=== PATIENT | male | born 1965 | race Caucasian/White ===

== ENCOUNTER → 2018-05-11 | Outpatient (CLI) | payer MEDICARE ==
--- NOTE | 2018-05-11 14:35 | RADIOLOGY REPORT (SQ) ---
EXAM DESCRIPTION: CHEST 2 VIEWS COMPLETED DATE/TIME: 05/11/2018 2:27 pm REASON FOR STUDY: F17.200 NICOTINE DEPENDENCE, UNSPECIFIED, UNCOMPLICATED J20.9 ACUTE BRONCHI F17.20 0 NICOTINE DEPENDENCE, UNSPECIFIED, UNCOMPLICATED J20.9 ACUTE BRONCHITIS, UNSPECIFIED COMPARISON: 09/10/2014 NUMBER OF VIEWS: Two view. TECHNIQUE: Frontal and lateral radiographic views of the chest acquired. LIMITATIONS: None. FINDINGS: LUNGS AND PLEURA: No opacities, masses or pneumothorax. No pleural effusion. Attenuated bl ood vessels and flattened didier-diaphragms. MEDIASTINUM AND HILAR STRUCTURES: No masses. No contour abnormalities. HEART AND VASCULAR STRUCTURES: Heart normal in size and contour. No evidence for failure. BONES: No acute findings. HARDWARE: None in the chest. OTHER: No other significant finding. IMPRESSION: COPD. NO ACUTE RADIOGRAPHIC FINDING IN THE CHEST. TECHNICAL DOCUMENTATION: JOB ID: [id number] [employer]- All Rights Reserved Reading location - IP/workstation name: [email or web address]
== END ==
LOC: RAD 14:09
PROVIDERS: ATTEND Nurse Practitioner Family
DX: J20.9 Acute bronchitis, unspecified (principal); F17.200 Nicotine dependence, unspecified, uncomplicated; J44.9 Chronic obstructive pulmonary disease, unspecified
CPT/HCPCS: 71046

== ENCOUNTER 2019-02-18 14:28 | Emergency (ER) | payer MEDICARE ==
[2019-02-18] MEDS ORDERED: CEFTRIAXONE 1 GM/D5W RTU 1 GM/50 ML RTUPB IV ONE (14:52)
[2019-02-18] MEDS ORDERED: ONDANSETRON HCL INJ/PF 4 MG/2 ML SDV IV ONE (14:56)
[2019-02-18] MEDS ORDERED: MORPHINE SULFATE 10 MG/ML INJ IV ONE ×2 (14:56→16:39)
--- NOTE | 2019-02-18 14:56 | ER Document Report ---
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 - Vital Signs Vital signs: Temp Pulse Resp BP Pulse Ox 97.6 F 65 16 140/72 H 100 02/18/19 14:34 02/18/19 14:34 02/18/19 14:34 02/18/19 14:34 02/18/19 14:34 Original Note: ED Medical Screen (RME) - General Chief Complaint: Hand Injury Stated Complaint: HAND INJURY Time Seen by Provider: 02/18/19 14:40 TRAVEL OUTSIDE OF THE [place] IN LAST 30 DAYS: No - HPI Notes: 02/18/19 14:53 Patient is a 53-year-old male who presents with left hand pain and bleeding status post crush injury by a hammer prior to arrival. Patient states that he had x-rays at another clinic and said that his bone was very displaced and that he needed to come here because he needed surgery. Denies HURTADO, fever, neck pain, URI, CP, SOB, Abd pain, dysuria, back pain, or rash. I have treated and performed a rapid initial assessment of this patient. A comprehensive ED assessment and evaluation of the patient, analysis of test results and completion of medical decision making process will be conducted by additional ED providers. I did notify Dr. Mckinnon who recommends Rocephin IV for now. I did review the images at bedside and he does have a displaced fracture of the fifth metacarpal as well as a puncture coming through the skin which I suspect to be secondary to possibly a bone puncturing the skin making it an open fracture. PHYSICAL EXAMINATION: GENERAL: Well-appearing, well-nourished and in no acute distress. A&Ox4. Answers questions appropriately. LUNGS: Breath sounds clear to auscultation bilaterally and equal. No wheezes rales or rhonchi. HEART: Regular rate and rhythm without murmurs, rubs, gallops. - Related Data Allergies/Adverse Reactions: BEES Allergy (Uncoded 02/18/19 14:39) Past Medical History - Past Medical History Cardiac Medical History: Denies: Hx Coronary Artery Disease, Hx Heart Attack, Hx Hypertension Pulmonary Medical History: Reports: Hx COPD Denies: Hx Asthma, Hx Bronchitis, Hx Pneumonia Neurological Medical History: Denies: Hx Cerebrovascular Accident, Hx Seizures Musculoskeltal Medical History: Reports Hx Arthritis - Back, neck, Rt foot - Immunizations Hx Diphtheria, Pertussis, Tetanus Vaccination: No - Unsure Physical Exam - Vital signs Vitals: Temp Pulse Resp BP Pulse Ox 97.6 F 65 16 140/72 H 100 02/18/19 14:34 02/18/19 14:34 02/18/19 14:34 02/18/19 14:34 02/18/19 14:34 Course - Vital Signs Vital signs: Temp Pulse Resp BP Pulse Ox 97.6 F 65 16 140/72 H 100 02/18/19 14:34 02/18/19 14:34 02/18/19 14:34 02/18/19 14:34 02/18/19 14:34
--- NOTE | 2019-02-18 15:08 | RADIOLOGY REPORT (SQ) ---
EXAM DESCRIPTION: HAND LEFT 3 VIEWS COMPLETED DATE/TIME: 02/18/2019 2:55 pm REASON FOR STUDY: crush injury left hand COMPARISON: None. EXAM PARAMETERS: NUMBER OF VIEWS: Three views. TECHNIQUE: AP, lateral and oblique radiographic images acquired of the left hand. LIMITATIONS: None. FINDINGS: MINERALIZATION: Normal. BONES: Comminuted proximal 5th metacarpal metaphyseal fracture with 6 mm of lateral and impaction. N o other fracture identified. . JOINTS: No effusion. SOFT TISSUES: Moderate soft tissue swelling. No radiopaque foreign body. OTHER: No other significant finding. IMPRESSION: Comminuted proximal 5th metacarpal metaphyseal fracture with 6 mm of lateral and impacti on. No other fracture identified. TECHNICAL DOCUMENTATION: JOB ID: [id number] [place]-72 2010 [employer]- All Rights Reserved Reading location - IP/workstation name: [email or web address]
[2019-02-18] MEDS ORDERED: CEFTRIAXONE INJ 1000 MG VIAL ONE (15:24)
[2019-02-18] MEDS ORDERED: CEFTRIAXONE INJ 1000 MG VIAL IV ONE (15:29)
[2019-02-18 15:50] LABS: ABSOLUTE LYMPHOCYTES (AUTO) 1.2 10^3/uL (0.5-4.7); ABSOLUTE MONOCYTES (AUTO) 0.7 10^3/uL (0.1-1.4); BASOPHILS % (AUTO) 0.2 % (0-2); EOSINOPHILS % (AUTO) 0.6 % (0-6); HEMATOCRIT 42.8 % (37.9-51.0); HEMOGLOBIN 14.3 g/dL (13.5-17.0); LYMPHOCYTES % (AUTO) 15.6 % (13-45); MEAN CORPUSCULAR HEMOGLOBIN 31.3 pg (27.0-33.4); MEAN CORPUSCULAR HGB CONC 33.4 g/dL (32.0-36.0); MEAN CORPUSCULAR VOLUME 94 fl (80-97); MONOCYTES % (AUTO) 8.4 % (3-13); PLATELET COUNT 195 10^3/uL (150-450); RED BLOOD COUNT 4.55 10^6/uL (4.35-5.55); RED CELL DISTRIBUTION WIDTH 13.2 % (11.5-14.0); SEGMENTED NEUTROPHILS % (AUTO) 75.2 % (42-78); TOTAL CELLS COUNTED % (AUTO) 100 %; WHITE BLOOD COUNT 7.9 10^3/uL (4.0-10.5)
[2019-02-18 15:56] LABS: INTERNATIONAL RATION (INR) 0.96; PROTHROMBIN TIME 13.3 SEC (11.4-15.4)
[2019-02-18 15:57] LABS: PARTIAL THROMBOPLASTIN TIME 27.6 SEC (23.5-35.8)
--- NOTE | 2019-02-18 15:58 | ER Document Report ---
ED General - General Chief Complaint: Hand Injury Stated Complaint: HAND INJURY Time Seen by Provider: 02/18/19 14:40 Primary Care Provider: DEVENDRA CORADO MD [ASSOCIATE] - Follow up in 3-5 days Notes: Patient is a 53-year-old male that presents to the emergency department for chief complaint of left hand injury. Patient states that he was trying to hammer off a bracket, and he was holding onto the bracket with a pair pliers in his left hand, and he actually struck his left hand with a claw hammer, resulting in injury to his hand. He states that this occurred around noon today, he initially went to urgent care, but was advised to come to the emergency department after they saw his hand, they did give him a tetanus shot prior to sending him over. Currently rates his pain as a 6 out of 10 describes as an aching and throbbing sensation in his left hand more towards the small finger. He states he has some tingling in the finger, but states he is able to feel it, denies any weakness. He denies any other injuries associated with this. Past Medical History: Chronic low back pain Past Surgical History: Carpal tunnel surgery, back surgery Social History: Admits to smoking cigarettes, denies current alcohol or drug use. Family History: Reviewed and noncontributory for presenting illness Allergies: Reviewed, see documented allergy list. REVIEW OF SYSTEMS: Other than noted above, the 12 point review of systems was reviewed with the patient and were negative, all pertinent findings are included in the HPI. PHYSICAL EXAMINATION: Vital signs reviewed, nursing noted reviewed. GENERAL: Well-appearing, well-nourished and in no acute distress. HEAD: Atraumatic, normocephalic. EYES: Eyes appear normal, extraocular movements intact, sclera anicteric, conjunctiva are normal. ENT: nares patent, oropharynx clear without exudates. Moist mucous membranes. NECK: Normal range of motion, supple without lymphadenopathy LUNGS: Breath sounds clear to auscultation bilaterally and equal. No wheezes rales or rhonchi. HEART: Regular rate and rhythm without murmurs EXTREMITIES: The left hand is noted to have ecchymosis and edema noted to the dorsal aspect, there is a small superficial skin abrasion associated with this as well, there is tenderness with palpation, range of motion at the MCP of the fifth digit is decreased secondary to pain, the patient does have intact tendon function however at the DIP and PIP, with good cap refill less than 3 seconds, and patient sensation is intact distally as well in all digits. The rest the patient's extremity exam is grossly unremarkable has good range of motion, and is neurovascularly intact distally in all lower extremities. NEUROLOGICAL: No focal neurological deficits. Moves all extremities spontaneously Motor and sensory grossly intact on exam. PSYCH: Normal mood, normal affect. SKIN: Warm, Dry, normal turgor, no rashes or lesions noted on exposed skin TRAVEL OUTSIDE OF THE [place] IN LAST 30 DAYS: No - Related Data Allergies/Adverse Reactions: BEES Allergy (Uncoded 02/18/19 14:39) Past Medical History - Social History Smoking Status: Current Every Day Smoker Family History: None Patient has suicidal ideation: No Patient has homicidal ideation: No - Past Medical History Cardiac Medical History: Denies: Hx Coronary Artery Disease, Hx Heart Attack, Hx Hypertension Pulmonary Medical History: Reports: Hx COPD Denies: Hx Asthma, Hx Bronchitis, Hx Pneumonia Neurological Medical History: Denies: Hx Cerebrovascular Accident, Hx Seizures Renal/ Medical History: Denies: Hx Peritoneal Dialysis Musculoskeletal Medical History: Reports Hx Arthritis - Back, neck, Rt foot - Immunizations Hx Diphtheria, Pertussis, Tetanus Vaccination: No - Unsure Physical Exam - Vital signs Vitals: Temp Pulse Resp BP Pulse Ox 97.6 F 65 16 140/72 H 100 02/18/19 14:34 02/18/19 14:34 02/18/19 14:34 02/18/19 14:34 02/18/19 14:34 Course - Re-evaluation Re-evalutation: Patient seen and examined vital signs reviewed. Laboratory data and/or imaging were ordered as appropriate for the patient's presenting symptoms and complaint, with consideration of any critical or life threatening conditions that may be associated with their obtained history and exam as noted above. Patient was treated with IV morphine, he was given a dose of IV Rocephin as well Results were reviewed when available and demonstrated comminuted fracture of the fifth metacarpal, with impaction, blood work was ordered in triage, and review was unremarkable, after close inspection of the patient's wound, it appeared ve ry superficial, and I do not believe that this is an open fracture based on close examination. The patient was re-evaluated and was stable, placed in an ulnar gutter splint as noted below, patient tolerated well, patient has pain medication at home, was advised to follow-up with orthopedic surgery and given referral. Evaluation was most consistent with right fifth metacarpal fracture, related to trauma Results were discussed with the patient at this point, after careful consideration I feel that that patient can be discharged from the emergency department, the patient was educated treatments and reasons to return to the emergency department based on their presumed diagnosis as noted above, they were advised to followup with a primary care physician in 2-3 days. Patient was agreeable to plan of care. *Note is created using voice recognition software and may contain spelling, syntax or grammatical errors. Laboratory 02/18/19 02/18/19 02/18/19 15:04 15:04 15:04 WBC 7.9 RBC 4.55 Hgb 14.3 Hct 42.8 MCV 94 MCH 31.3 MCHC 33.4 RDW 13.2 Plt Count 195 Seg Neutrophils % 75.2 Lymphocytes % 15.6 Monocytes % 8.4 Eosinophils % 0.6 Basophils % 0.2 Absolute Neutrophils 6.0 Absolute Lymphocytes 1.2 Absolute Monocytes 0.7 Absolute Eosinophils 0.0 Absolute Basophils 0.0 PT 13.3 INR 0.96 APTT 27.6 Sodium 137.3 Potassium 4.2 Chloride 95 L Carbon Dioxide 32 H Anion Gap 10 BUN 14 Creatinine 0.55 Est GFR ( Amer) > 60 Est GFR (Non-Af Amer) > 60 Glucose 102 Calcium 9.1 Total Bilirubin 0.6 Direct Bilirubin 0.2 Neonat Total Bilirubin Not Reportable Neonat Direct Bilirubin Not Reportable Neonat Indirect Bili Not Reportable AST 26 ALT 22 Alkaline Phosphatase 78 Total Protein 7.2 Albumin 4.8 Hand X-Ray 02/18/19 14:41 IMPRESSION: Comminuted proximal 5th metacarpal metaphyseal fracture with 6 mm of lateral and impaction. No other fracture identified. - Vital Signs Vital signs: Temp Pulse Resp BP Pulse Ox 97.8 F 62 16 138/70 H 100 02/18/19 17:40 02/18/19 17:40 02/18/19 17:40 02/18/19 17:40 02/18/19 17:40 - Laboratory Result Diagrams: 02/18/19 15:04 02/18/19 15:04 Laboratory results interpreted by me: 02/18/19 15:04 Chloride 95 L Carbon Dioxide 32 H Procedures - Immobilization Left Hand Pre-Proc Neuro Vasc Exam: Normal Immobilizer type: Ulnar Performed by: PCT Post-Proc Neuro Vasc Exam: Normal Alignment checked and good: Yes Discharge - Discharge Clinical Impression: Fracture of metacarpal of left hand, closed Qualifiers: Encounter type: initial encounter Metacarpal bone: fifth Metacarpal location: unspecified portion of metacarpal Fracture alignment: displaced Qualified C ode(s): S62.307A - Unspecified fracture of fifth metacarpal bone, left hand, initial encounter for closed fracture Condition: Stable Disposition: HOME, SELF-CARE Instructions: Fractured Fifth Metacarpal ([facility]) Additional Instructions: Please call orthopedic surgeon, to have your fractured hand looked at, keep the splint clean and dry, do not get it wet. Keep it in place and to you are seen by the orthopedic surgeon. Take the pain medication only as needed, and please complete the entire course of antibiotics prescribed. Prescriptions: Amox Tr/Potassium Clavulanate [Augmentin 875-125 Tablet] 1 tab PO BID 7 Days #14 tablet Hydrocodone/Acetaminophen [Mather 5-325 mg Tablet] 1 tab PO Q8H PRN #12 tablet PRN Reason: hand pain Referrals: DEVENDRA CORADO MD [ASSOCIATE] - Follow up in 3-5 days
[2019-02-18 15:59] LABS: ALANINE AMINOTRANSFERASE 22 U/L (21-72); ALBUMIN 4.8 g/dL (3.5-5.0); ALKALINE PHOSPHATASE 78 U/L (38-126); ANION GAP 10 (5-19); ASPARTATE AMINO TRANSFERASE 26 U/L (17-59); BILIRUBIN,DIRECT 0.2 mg/dL (0.0-0.4); BILIRUBIN,TOTAL 0.6 mg/dL (0.2-1.3); BLOOD UREA NITROGEN 14 mg/dL (7-20); CALCIUM 9.1 mg/dL (8.4-10.2); CARBON DIOXIDE 32 mmol/L (22-30); CHLORIDE 95 mmol/L (98-107); GLUCOSE 102 mg/dL (75-110); POTASSIUM 4.2 mmol/L (3.6-5.0); SODIUM 137.3 mmol/L (137-145); TOTAL PROTEIN 7.2 g/dL (6.3-8.2)
[2019-02-18 17:47] VITALS: BP 138/70
== END 2019-02-18 17:40 | disposition home or self-care (01) ==
LOC: ER 14:28
DX: S62.307A Unspecified fracture of fifth metacarpal bone, left hand, initial encounter for closed fracture (principal); W22.8XXA Striking against or struck by other objects, initial encounter; G89.29 Other chronic pain; M54.5 Low back pain; F17.210 Nicotine dependence, cigarettes, uncomplicated
CPT/HCPCS: 96376; 99283; 96375; 96365; 36415; 85025; 85610; 85730; 80053; 73130; 29125; J2270; J0696; J2405

== ENCOUNTER 2019-02-20 12:44 | Emergency (ER) | payer MEDICARE ==
[2019-02-20 12:59] VITALS: BP 136/62
--- NOTE | 2019-02-20 13:15 | ER Document Report ---
HPI - HPI Time Seen by Provider: 02/20/19 13:07 Pain Level: 5 Notes: Patient is a 53-year-old male who presents complaining of continued pain to his left hand status post fracture that was found to days ago. Patient has a fracture to his mid metacarpal with displacement and impaction. Patient did try to call an orthopedic group, but they were closely presented here as his pain management doctor told him that we have an orthopedic on-call. He has no other concerns or complaints. That is his primary reason for coming today. He is under the care of pain management for chronic pain and is on a fentanyl patch. Denies any headache, fever, URI, sore throat, chest pain, palpitations, syncope, cough, shortness of breath, wheeze, dyspnea, abdominal pain, nausea/vomiting/diarrhea, urinary retention, dysuria, hematuria, loss of control of bowel or bladder, numbness/tingling, muscle paralysis, or rash. - ROS Systems Reviewed and Negative: Yes All other systems reviewed and negative Past Medical History - Social History Smoking Status: Unknown if Ever Smoked Family History: None - Past Medical History Cardiac Medical History: Denies: Hx Coronary Artery Disease, Hx Heart Attack, Hx Hypertension Pulmonary Medical History: Reports: Hx COPD Denies: Hx Asthma, Hx Bronchitis, Hx Pneumonia Neurological Medical History: Denies: Hx Cerebrovascular Accident, Hx Seizures Renal/ Medical History: Denies: Hx Peritoneal Dialysis Musculoskeletal Medical History: Reports Hx Arthritis - Back, neck, Rt foot - Immunizations Hx Diphtheria, Pertussis, Tetanus Vaccination: No - Unsure Vertical Provider Document - CONSTITUTIONAL Agree With Documented VS: Yes Notes: PHYSICAL EXAMINATION: GENERAL: Well-appearing, well-nourished and in no acute distress. HEAD: Atraumatic, normocephalic. NECK: Normal range of motion, supple without lymphadenopathy. No midline ten derness. LUNGS: Breath sounds clear to auscultation bilaterally and equal. No wheezes rales or rhonchi. HEART: Regular rate and rhythm without murmurs, rubs, gallops. Musculoskeletal: Rt hand/wrist: + swelling noted to the hand near the 5th metacarpal with associated tenderness. N/V intact distal. FROM to passive/active at the wrist and DIP/PIP otherwise. Strength 5+/5. No scaphoid tenderness. - INFECTION CONTROL TRAVEL OUTSIDE OF THE [place] IN LAST 30 DAYS: No Course - Re-evaluation Re-evalutation: 02/20/19 13:19 I did call and speak with Dr. Chand who recommends calling his office today as they are open and he can schedule an appointment. No other recommendations at this time. Vitals are otherwise acceptable without significant tachycardia, tachypnea, or hypoxia. PE is otherwise unremarkable for any neurovascular compromise or septic joint. Patient is nontoxic-appearing and is tolerating p.o. without difficulty. Toradol given IM today. Patient is already on a fentanyl patch regularly through pain management. Information given for the orthopedic group that he may call when he is discharged here to schedule an appointment. Recheck with your PCM in 3 to 5 days otherwise. Return to the ED with any other worsening/concerning symptoms. Patient is in agreement. - Vital Signs Vital signs: Temp Pulse Resp BP Pulse Ox 98.6 F 78 18 136/62 H 97 02/20/19 12:59 02/20/19 12:59 02/20/19 12:59 02/20/19 12:59 02/20/19 12:59 Discharge - Discharge Clinical Impression: Fracture of metacarpal of left hand, closed Qualifiers: Encounter type: sequela Metacarpal bone: fifth Metacarpal location: base Fracture alignment: displaced Qualified Code(s): S62.317S - Displaced fracture of base of fifth metacarpal bone, left hand, sequela Condition: Stable Disposition: HOME, SELF-CARE Additional Instructions: Rest, Ice, Compression, Elevation Use splint as directed Tylenol/ibuprofen as needed F/u with your PCP in 3-5 days for a recheck Call orthopedics today to schedule an appointment for further evaluation and management- office is open Return to the ED with any worsening symptoms and/or development of fever, headache, chest pain, palpitations, syncope, shortness of breath, trouble breathing, abdominal pain, n/v/d, muscle weakness/paralysis, numbness/tingling, swelling, redness, or other worsening symptoms that are concerning to you. Forms: Elevated Blood Pressure Referrals: JESSE CHAND DO [ACTIVE STAFF] - Follow up in 3-5 days
[2019-02-20] MEDS ORDERED: KETOROLAC TROMETHAMINE INJ/PF 30 MG/1 ML SDV IM ONE (13:16)
== END 2019-02-20 13:42 | disposition home or self-care (01) ==
LOC: ER 12:44
DX: S62.317S Displaced fracture of base of fifth metacarpal bone, left hand, sequela (principal); M79.642 Pain in left hand; G89.29 Other chronic pain; X58.XXXS Exposure to other specified factors, sequela; Z79.899 Other long term (current) drug therapy
CPT/HCPCS: 99283

== ENCOUNTER 2019-03-01 08:14 | Day surgery (SDC) | payer MEDICARE ==
[~2019-03-01 08:14] MED LIST: CEFAZOLIN 2 GM/D5W RTU 2 GM/50 ML RTUPB IV PRN
[2019-03-01] MEDS ORDERED: MIDAZOLAM 2 MG/2 ML INJ ONE (09:06)
[2019-03-01] MEDS ORDERED: FENTANYL CITRATE INJ/PF 100 MCG/2 ML AMPUL ONE ×2 (09:06→11:37)
[2019-03-01] MEDS ORDERED: PROPOFOL INJ 200 MG/20 ML VIAL IV ONE (09:06)
[2019-03-01 09:15] LABS: HEMATOCRIT 42.4 % (37.9-51.0); HEMOGLOBIN 14.1 g/dL (13.5-17.0); MEAN CORPUSCULAR HEMOGLOBIN 31.1 pg (27.0-33.4); MEAN CORPUSCULAR HGB CONC 33.1 g/dL (32.0-36.0); MEAN CORPUSCULAR VOLUME 94 fl (80-97); PLATELET COUNT 192 10^3/uL (150-450); RED BLOOD COUNT 4.51 10^6/uL (4.35-5.55); RED CELL DISTRIBUTION WIDTH 13.1 % (11.5-14.0); WHITE BLOOD COUNT 5.2 10^3/uL (4.0-10.5)
[2019-03-01] MEDS ORDERED: ONDANSETRON HCL INJ/PF 4 MG/2 ML SDV ONE (09:17)
--- NOTE | 2019-03-01 09:23 | RADIOLOGY REPORT (SQ) ---
EXAM DESCRIPTION: CHEST SINGLE VIEW COMPLETED DATE/TIME: 03/01/2019 8:50 am REASON FOR STUDY: PREOP S62.317A DISP FX OF BASE OF FIFTH METACARPAL BONE, LEFT HAND COMPARISON: None. NUMBER OF VIEWS: One view. TECHNIQUE: Single frontal radiographic view of the chest acquired. LIMITATIONS: None. FINDINGS: LUNGS AND PLEURA: No opacities, masses or pneumothorax. No pleural effusion. Attenuated bl ood vessels and flattened didier-diaphragms. MEDIASTINUM AND HILAR STRUCTURES: No masses. Contour normal. HEART AND VASCULAR STRUCTURES: Heart normal in size. Normal vasculature. BONES: No acute findings. HARDWARE: None in the chest. OTHER: No other significant finding. IMPRESSION: COPD. NO ACUTE RADIOGRAPHIC FINDING IN THE CHEST. TECHNICAL DOCUMENTATION: JOB ID: [id number] [employer]- All Rights Reserved Reading location - IP/workstation name: [email or web address]
[2019-03-01 09:35] LABS: ANION GAP 6 (5-19); BLOOD UREA NITROGEN 14 mg/dL (7-20); CALCIUM 9.4 mg/dL (8.4-10.2); CARBON DIOXIDE 31 mmol/L (22-30); CHLORIDE 102 mmol/L (98-107); GLUCOSE 83 mg/dL (75-110); POTASSIUM 4.5 mmol/L (3.6-5.0); SODIUM 139.3 mmol/L (137-145)
[2019-03-01] MEDS ORDERED: CEFAZOLIN 2 GM/D5W RTU 2 GM/50 ML RTUPB IV ONE (10:00)
[2019-03-01] MEDS ORDERED: BUPIVACAINE HCL 0.5 % INJ/PF 30 ML SDV ONE (10:10)
[2019-03-01] MEDS ORDERED: FENTANYL CITRATE INJ/PF 100 MCG/2 ML AMPUL IV PRN ×2 (10:29)
[2019-03-01] MEDS ORDERED: PROMETHAZINE HCL INJ 25 MG/1 ML VIAL IV PRN (10:29)
[2019-03-01] MEDS ORDERED: MORPHINE SULFATE 10 MG/ML INJ IV PRN (10:29)
[2019-03-01] MEDS ORDERED: MEPERIDINE HCL/PF INJ 25 MG/1 ML DISP.SYRIN IV PRN (10:29)
[2019-03-01] MEDS ORDERED: OXYCODONE-ACETAMINOPHEN 5-325 MG TABLET PO PRN ×2 (10:29)
[2019-03-01] MEDS ORDERED: DIPHENHYDRAMINE HCL 50 MG/ML VIAL IV PRN (10:29)
--- NOTE | 2019-03-01 11:07 | Discharge Summary ---
Discharge Summary (SDC) - Discharge Final Diagnosis: Left fifth metacarpal fracture Date of Surgery: 03/01/19 Discharge Date: 03/01/19 Condition: Good Treatment or Instructions: Elevate left upper extremity Prescriptions: Oxycodone HCl/Acetaminophen [Percocet 5-325 mg Tablet] 5 - 325 mg PO Q6 PRN #40 tablet PRN Reason: Referrals: MAYO MARTIN DO [Primary Care Provider] - Discharge Diet: As Tolerated, Regular Respiratory Treatments at Home: Deep Breathing/Coughing Discharge Activity: Balance Activity w/Rest, No tub bath Home Care Assistance: None Needed Report the Following to Your Physician Immediately: Shortness of Breath, Fever over 101 Degrees, Drainage-Foul Smelling
--- NOTE | 2019-03-01 11:09 | Operative Report ---
Operative Report DATE OF SURGERY: 03/01/19 PREOPERATIVE DIAGNOSIS: Left comminuted proximal fifth carpal fracture OPERATION: Open reduction internal fixation left fifth metacarpal fracture SURGEON: VIELKA BAPTISTE ANESTHESIA: LMAC ESTIMATED BLOOD LOSS: 25 PROCEDURE: With the patient supine on the operating table the left hand is pre-scrubbed and then prepped and draped in sterile fashion. Limb is elevated for exsanguination tourniquet inflated 250 torr. A longitudinal incision was made over the junction of the proximal fifth metacarpal and carpal joint of the left upper extremity. Sharp dissection was carried incision down to the fracture. The fracture callus is debrided. The joint is reduced anatomically under fluoroscopic guidance. Is held with a single 0.045 pin. Subsequently a Gian T plate from the hand tray is applied to the dorsal lateral aspect of the metacarpal and secured with 4 screws distally and 3 screws proximally. The fracture reduction hardware placement checked fluoroscopically and felt to be adequate. The tourniquet is deflated. Hemostasis obtained with bipolar cautery. The wound was irrigated with bulb lavage. Is closed in layers interrupted Vicryl followed by nylon. A sterile compressive dressing and a plaster ulnar gutter splint were applied. The patient's return to the PACU in satisfactory condition.
[2019-03-01] MEDS: FENTANYL CITRATE INJ/PF 100 MCG/2 ML AMPUL IV PRN ×2 (11:40→11:54)
[2019-03-01] MEDS ORDERED: KETOROLAC TROMETHAMINE 60 MG/2 ML SDV ONE (11:40)
[2019-03-01] MEDS ORDERED: OXYCODONE-ACETAMINOPHEN 5-325 MG TABLET ONE (12:55)
--- NOTE | 2019-03-01 13:51 | RADIOLOGY REPORT (SQ) ---
EXAM DESCRIPTION: NO CHG FLUORO; HAND LEFT 2 VIEWS COMPLETED DATE/TIME: 03/01/2019 1:09 pm REASON FOR STUDY: ORIF LEFT 5TH METACARPAL ASST WITH FLUORO IN OR S62.317A DISP FX OF BASE OF FIFTH METACARPAL BONE, LEFT HAND COMPARISON: None. FLUOROSCOPY TIME: 11 seconds 2 images saved to PACS. TECHNIQUE: Intra-operative images acquired during surgical procedure to evaluate progress. NUMBER OF IMAGES: 2 LIMITATIONS: None. FINDINGS: Selected images from plate and screw fixation of 5th metacarpal fracture. IMPRESSION: IMAGE(S) OBTAINED DURING PROCEDURE. COMMENT: Quality ID [id number]: Final reports for procedures using fluoroscopy that document radiation exp osure indices, or exposure time and number of fluorographic images (if radiation exposure indices are not available) Please consult full operative report of the attending physician for description of the procedure. TECHNICAL DOCUMENTATION: JOB ID: [id number] [employer]- All Rights Reserved Reading location - IP/workstation name: [email or web address]
--- NOTE | 2019-03-01 13:51 | RADIOLOGY REPORT (SQ) ---
EXAM DESCRIPTION: NO CHG FLUORO; HAND LEFT 2 VIEWS COMPLETED DATE/TIME: 03/01/2019 1:09 pm REASON FOR STUDY: ORIF LEFT 5TH METACARPAL ASST WITH FLUORO IN OR S62.317A DISP FX OF BASE OF FIFTH METACARPAL BONE, LEFT HAND COMPARISON: None. FLUOROSCOPY TIME: 11 seconds 2 images saved to PACS. TECHNIQUE: Intra-operative images acquired during surgical procedure to evaluate progress. NUMBER OF IMAGES: 2 LIMITATIONS: None. FINDINGS: Selected images from plate and screw fixation of 5th metacarpal fracture. IMPRESSION: IMAGE(S) OBTAINED DURING PROCEDURE. COMMENT: Quality ID 145: Final reports for procedures using fluoroscopy that document radiation exp osure indices, or exposure time and number of fluorographic images (if radiation exposure indices are not available) Please consult full operative report of the attending physician for description of the procedure. TECHNICAL DOCUMENTATION: JOB ID: [id number] [employer]- All Rights Reserved Reading location - IP/workstation name: [email or web address]
[2019-03-01 14:06] VITALS: BP 115/71
--- NOTE | 2019-03-01 20:44 | EKG REPORT ---
SEVERITY:- NORMAL ECG - SINUS RHYTHM : Confirmed by: June Parker MD 01-Mar-2019 20:43:23
== END 2019-03-01 13:45 | disposition home or self-care (01) ==
LOC: OROUT 08:14
PROVIDERS: ATTEND Orthopaedic Surgery
DX: S62.317A Displaced fracture of base of fifth metacarpal bone, left hand, initial encounter for closed fracture (principal); X58.XXXA Exposure to other specified factors, initial encounter; Z87.891 Personal history of nicotine dependence; J44.9 Chronic obstructive pulmonary disease, unspecified; Z01.818 Encounter for other preprocedural examination
CPT/HCPCS: 36415; 85027; 80048; 71045; 73120; 93005; 93010; 01830; 26615; C1713 ×6; J2250; J3490; J1885; J3010; A9270; J2405; J2704; J0690